=== PATIENT | male | born 1960 | race Caucasian/White ===

== ENCOUNTER 2024-02-11 06:58 | Outpatient (CLI) | payer MEDICARE, MEDICAID, SELFPAY ==
--- NOTE | ~2024-02-11 | CT_ITS ---
EXAMINATION:CT lung screening DATE: 02/11/2024 07:24 INDICATION: Personal history of nicotine dependence. Current smoker with 40 pack year history. TECHNIQUE: Computed tomography (CT) of the chest was performed without intravenous contrast. Automate d exposure control and iterative reconstruction technique were employed. The dose-length product (DLP ) was 91.53 mGy-cm. COMPARISON: None. FINDINGS: There is mild emphysema. There is mild atelectasis in right lung. There are a few scattered nodules in the lungs measuring up to 4 mm. No pleural effusion. The heart size is normal. There are coronary artery calcifications. No pericardial effusion. There is mild bilateral gynecomastia. There is diffuse hepatic steatosis. There is mild thoracic spondylosis. There is a chronic compression frac ture of T1. IMPRESSION: 1. Lung-RADS category 2: Benign appearance or behavior. Continue annual screening with noncontrast lo w-dose chest CT in 12 months. Reviewed, dictated and finalized at location A. IMPRESSION: 1. Lung-RADS category 2: Benign appearance or behavior. Continue annual screeni ng with noncontrast low-dose chest CT in 12 months.
== END 2024-02-11 06:59 | disposition home or self-care (01) ==
LOC: ANHIMG 07:05
PROVIDERS: PCP Internal Medicine; Visit Provider Internal Medicine
DX: Z12.2 Encounter for screening for malignant neoplasm of respiratory organs (principal); Z87.891 Personal history of nicotine dependence
CPT/HCPCS: 71271